=== PATIENT | male | born 1955 | race Caucasian/White ===

== ENCOUNTER → 2017-05-19 | Outpatient (CLI) | payer OTHER ==
--- NOTE | 2017-05-19 15:15 | DIREP ---
PROCEDURE:US AORTA COMPLETE STUDY COMPARISON:None. INDICATIONS:CURRENT SMOKER, SLIGHT ABD BRUIT, SCREENING AAA TECHNIQUE:Grayscale ultrasound was performed of the abdominal aorta. Spectral analysis and color-flow are also performed. FINDINGS: PROXIMAL AORTIC DIAMETER (cm):1.5 x 2.4 cm MID-AORTIC DIAMETER (cm):2.0 x 2.5 cm DISTAL AORTIC DIAMTER (cm):1.6 x 1.7 cm RIGHT COMMON ILIAC DIAMETER (cm):0.9 x 1.0 cm LEFT COMMON ILIAC DIAMETER (cm):1.0 x 1.0 cm CONCLUSION:Normal examination. Dictated by: CRISTINO Physician on 05/19/2017 at 02:51 PM ld
--- NOTE | 2017-05-19 15:18 | DIREP ---
PROCEDURE:CT CHEST WITHOUT CONTRAST TECHNIQUE:Axial cuts were obtained through the chest, without intravenous contrast material. The images were viewed at lung and soft tissue settings. Sagittal and coronal reconstructions are provided. COMPARISON:None. INDICATIONS:OE.REASON FINDINGS: LUNGS:Hyperinflation and mild chronic interstitial changes. Mild biapical pleural thickening, parenchymal scarring and a small bulla. Abnormalities or pleural effusion. CARDIAC:Normal size heart, coronary artery calcifications and normal pulmonary vascularity. THORACIC AORTA:Calcification without dilatation. Calcification of the origin of the great vessels. MEDIASTINUM/ARASELI:No pathologic adenopathy. CHEST WALL:Normal. LIMITED ABDOMEN:Small renal calculi versus peripheral renal arterial calcifications. BONES:Thoracic spondylosis. THYROID:Normal. OTHER:No additional findings. CONCLUSION: 1. Mild emphysema. 2. Diffuse atherosclerosis. 3. No acute intrathoracic abnormality. Dictated by: Lolly Welch MD on 05/19/2017 at 03:12 PM
== END | disposition home or self-care (01) ==
LOC: CT 09:33
PROVIDERS: ATTEND Family Medicine
DX: I71.4 Abdominal aortic aneurysm, without rupture (principal); I70.8 Atherosclerosis of other arteries; J43.9 Emphysema, unspecified; Z72.0 Tobacco use
CPT/HCPCS: 71250; 76770

== ENCOUNTER → 2019-04-19 | Outpatient (CLI) | payer OTHER ==
--- NOTE | 2019-04-19 11:04 | DIREP ---
PROCEDURE:CT CHEST W/O COMPARISON:[facility], CT, CT CHEST W/O, 05/19/2017, 10:24 AM. INDICATIONS:TOBACCO USE, SERVEILLANCE FOR CA TECHNIQUE:Helical sections through the chest were performed from the lung apices through the diaphragms without IV contrast. Sagittal and coronal reconstructions are obtained from source images. FINDINGS: LUNGS:Mild hyper expansion compatible COPD. No definitive nodules. No masses. No change from prior study. PLEURA:Normal. No mass or effusion. CARDIAC:Heart size is normal. Vhtetory-gi-freeos coronary artery calcifications and/or stents are noted. No significant change from prior exam MEDIASTINUM:Normal. No mass or adenopathy. ARASELI:Normal. No mass or adenopathy. AORTA:Atherosclerotic aortic vascular calcifications. No evidence of aneurysm. CHEST WALL:Normal. No mass or axillary adenopathy. LIMITED ABDOMEN:Bilateral renal calcifications in its unclear based on this limited study is a this is vascular in nature or within the collecting system. BONES:Normal. No bony lesion or fracture. OTHER:Negative. CONCLUSION: 1. Coronary artery and aortic atherosclerotic vascular calcifications. 2. COPD. No evidence of discrete lung nodule. No lymphadenopathy. 3. Calcifications seen in the limited view the kidneys in its unclear if these are vascular in nature or within the collecting system. Correlate clinically Dictated by: Joe Perez MD on 04/19/2019 at 10:59 AM
== END | disposition home or self-care (01) ==
LOC: CT 09:33
PROVIDERS: ATTEND Family Medicine
DX: Z12.2 Encounter for screening for malignant neoplasm of respiratory organs (principal); I10 Essential (primary) hypertension; E78.5 Hyperlipidemia, unspecified; J44.9 Chronic obstructive pulmonary disease, unspecified; I25.10 Atherosclerotic heart disease of native coronary artery without angina pectoris; N20.0 Calculus of kidney; Z72.0 Tobacco use; F10.10 Alcohol abuse, uncomplicated
CPT/HCPCS: 71250

== ENCOUNTER 2020-03-09 10:01 | Emergency (ER) | payer OTHER ==
[~2020-03-09] VITALS: Ht 172.7 cm; Wt 68.0 kg
[2020-03-09 10:10] VITALS: BP 166/84
--- NOTE | 2020-03-09 10:43 | ER.PDOC ---
General Chief Complaint: Male Stated Complaint: MALE Time seen by MD: 10:31 Source: patient Exam Limitations: no limitations History of Present Illness Initial Comments Pt began having lower abd pain with dry heaves on evening (4 days ago). Since then has had decreased appetite, only eating crackers and bread with an occasional ice pop. Feels some urinary urgency, though denies tani dysuria. Has had some loose stools, but not persistent diarrhea. Pain worsens with walking around, and sometimes radiates towards upper abdomen. Location: RLQ, suprapubic Associated Symptoms: Urgency Sexual History: Non-contributory Prior symptoms/Treatment: No Similar symptoms previous, No Recenly Seen, No Treated by Doctor, No Recently Hospitalized Allergies: Coded Allergies: No Known Allergies (Unverified , 03/09/20) Past Medical History Medical History: high cholesterol, hypertension Surgical History: no surgical history Family History Significant Family History: no pertinent family hx Social History Alcohol Use: occassionally Drug Use: none Review of Systems Constitutional: no symptoms reported; denies chills, denies fever EENTM: no symptoms reported Respiratory: no symptoms reported Gastrointestinal: see HPI, abdominal pain; denies constipation; nausea; denies vomiting Genitourinary: see HPI Musculoskeletal: no symptoms reported Endocrine: no symptoms reported Hematologic/Lymphatic: no symptoms reported All Other Systems: Reviewed and Negative Physical Exam General Appearance: No Apparent Distress EENT: eyes nml inspection Neck: nml inspection Cardiovascular/Respiratory: Regular Rate, Rhythm, No M/R/G, Normal Peripheral Pulses Abdomen: Normal Bowel Sounds, Soft, Tenderness (RLQ, no guarding or rebound) Rectal: Deferred Back: nml inspection Extremities: Normal Range of Motion, Non-Tender, Normal Inspection, No Pedal Edema Neurologic/Psychiatric: No Motor/Sensory Deficits, Alert, Oriented x 3 Skin: Normal Color, Warm/Dry Lymphatic: No Adenopathy Results/Orders Results/Orders Orders - HEDY YEN DO Cbc With Auto Diff (03/09/20 10:37) Comprehensive Metabolic Panel (03/09/20 10:37) Lipase (03/09/20 10:37) Ct Abd/Pel With Iv Contrast (03/09/20 10:37) Urinalysis (03/09/20 10:37) Vital Signs Date Time Temp Pulse Resp B/P (MAP) Pulse Ox O2 Delivery O2 Flow Rate FiO2 03/09/20 10:10 97.7 77 16 98 03/09/20 10:10 97.7 77 16 03/09/20 10:10 97.7 77 16 166/84 (111) 98 Room Air Laboratory Tests Test 03/09/20 10:10 03/09/20 10:42 Urine Collection Type UNKNOWN Urine Color YELLOW (YELLOW) Urine Appearance CLEAR (CLEAR) Urine Bilirubin NEGATIVE MG/DL (NEGATIVE) Urine Ketones NEGATIVE (NEGATIVE) Urine Specific [place] 1.010 (1.005-1.035) Urine pH 6.5 (5.0-6.0) Urine Protein NEGATIVE (NEGATIVE) Urine Urobilinogen NEGATIVE (NEGATIVE) Urine Nitrate NEGATIVE (NEGATAIVE) Urine Leukocyte Esterase NEGATIVE (NEGATIVE) Urine Blood NEGATIVE (NEGATIVE) Urine Glucose NORMAL (NEGATIVE) White Blood Count 6.1 10^3/uL (4.5-11.0) Red Blood Count 4.45 10^6/uL (4.50-5.90) L Hemoglobin 14.3 g/dL (13.9-16.3) Hematocrit 42.1 % (37.0-53.0) Mean Corpuscular Volume 94.6 fL (78-100) Mean Corpuscular Hemoglobin 32.1 pg (26-34) Mean Corpuscular Hemoglobin Concent 34.0 g/dL (33-36.5) Red Cell Distribution Width 13.0 % (11.5-14.5) Platelet Count 216 10^3/uL (150-400) Mean Platelet Volume 9.7 fL (7.8-11.0) Neutrophils (%) (Auto) 65.3 % (41.0-85.0) Lymphocytes (%) (Auto) 21.4 % (24.0-44.0) L Monocytes (%) (Auto) 10.4 % (5.0-12.0) Neutrophils # (Auto) 4.0 10^3/uL (1.8-7.7) Lymphocytes # (Auto) 1.30 10^3/uL1 (1.0-4.8) Monocytes # (Auto) 0.6 10^3/uL (0.3-0.8) Absolute Immature Granulocyte (auto 0 10^3 u/L (0-2) Absolute Eosinophils (auto) 0.2 10^3/uL (0.0-0.2) Immature Granulocytes % 0.00 % (0.00-0.50) Eosinophils % 2.6 % (0.0-5.0) Basophils % 0.3 % (0.0-0.2) H Basophils # 0.0 10^3/uL (0.0-0.1) Sodium Level 136 mmol/L (132-145) Potassium Level 3.8 mmol/L (3.6-5.2) Chloride Level 102.0 mmol/L (96-109) Carbon Dioxide Level 24.0 mmol/L (20.0-32) Anion Gap 13.8 Blood Urea Nitrogen 8 mg/dL (7-18) Creatinine 0.78 mg/dL (0.59-1.40) Estimated GFR () 120.5 (>/=60) Est GFR (CKD-EPI)(Non-Afr Japanese) 99.6 (>/=60) BUN/Creatinine Ratio 10.0 Glucose Level 121 mg/dL (70-110) H Calcium Level 8.6 mg/dL (8.4-10.5) Total Bilirubin 0.5 mg/dL (0.2-1.0) Aspartate Amino Transferase (AST) 20 U/L (0-35) Alanine Aminotransferase (ALT) 26 U/L (12-78) Alkaline Phosphatase 76 U/L (50-136) Total Protein 7.1 g/dL (6.4-8.2) Albumin 3.4 g/dL (3.4-5.0) Globulin 3.7 Lipase 78 U/L (114-286) L Progress Progress I spoke with pt, reviewed findings, no specific cause of his abd pain, but no surgical findings to indicate need for admission at this time, labs unremarkable. Will d/c home, start on Bentyl and Zofran. Needs f/u with PMD in 1-2 days. PROCEDURE:CT ABD/PELVIS W/ CONTRAST TECHNIQUE:Following the intravenous administration of contrast material, venous phase cuts were obtained through the abdomen and pelvis. The images were viewed at lung and soft tissue settings. Sagittal and coronal reconstructions are provided. COMPARISON:None. INDICATIONS:lower abd pain FINDINGS: LOWER CHEST:The lung bases are clear. Coronary artery calcifications. Small hiatal hernia. LIVER:There is a 2.81 x 2.67 cm heterogeneous mass lesion in the anterior aspect of the left lobe of the liver series 2, image 18. BILIARY:Normal. PANCREAS:Normal. SPLEEN:Normal. URINARY TRACT:Normal. ADRENALS:Normal. AORTA/VASCULAR:Extensive arterial calcifications including renal arterial calcification. RETROPERITONEUM:Normal. BOWEL/MESENTERY:Normal. The appendix is normal. ABDOMINAL WALL:Normal. PELVIS:Normal. BONES:No destructive lesions. Osteophytes in the lumbar spine. OTHER:Normal. CONCLUSION: 1. No explanation for patient's pain. 2. Heterogeneous mass in the left lobe of the liver. Recommend MRI study to exclude possibility of hemangioma. 3. Extensive atherosclerosis. Dictated by: Juan C Joaquin M.D. on 03/09/2020 at 11:50 AM Departure Time of Disposition: 12:42 Disposition: 01 HOME, SELF-CARE Impression: Primary Impression: Abdominal pain Condition: Stable Referrals: MARGARITA VILLEDA DO (PCP) PRIMARY CARE PROVIDER Additional Instructions: f/u PMD in 1-2 days Duration or Time Spent with Pa: 25 Problem Qualifiers Primary Impression: Abdominal pain Abdominal location: lower abdomen, unspecified Qualified Codes: R10.30 - Lower abdominal pain, unspecified HEDY YEN DO Mar 09, 2020 10:43
[2020-03-09 10:55] LABS: BASOPHIL % 0.3 % (0.0-0.2); EOSINOPHIL # 0.2 10^3/uL (0.0-0.2); EOSINOPHIL % 2.6 % (0.0-5.0); LYMPHOCYTES # 1.3 10^3/uL1 (1.0-4.8); LYMPHOCYTES % 21.4 % (24.0-44.0); MEAN CORP HGB 32.1 pg (26-34); MONOCYTES # 0.6 10^3/uL (0.3-0.8); MONOCYTES % 10.4 % (5.0-12.0); NEUTROPHILS % 65.3 % (41.0-85.0)
[2020-03-09 11:04] LABS: APPEARANCE,URINE CLEAR (CLEAR); BILIRUBIN,URINE NEGATIVE (NEGATIVE); UA COLOR YELLOW (YELLOW); UROBILINOGEN,URINE NEGATIVE (NEGATIVE)
[2020-03-09 11:08] LABS: CALCIUM 8.6 mg/dL (8.4-10.5)
--- NOTE | 2020-03-09 11:57 | DIREP ---
PROCEDURE:CT ABD/PELVIS W/ CONTRAST TECHNIQUE:Following the intravenous administration of contrast material, venous phase cuts were obtained through the abdomen and pelvis. The images were viewed at lung and soft tissue settings. Sagittal and coronal reconstructions are provided. COMPARISON:None. INDICATIONS:lower abd pain FINDINGS: LOWER CHEST:The lung bases are clear. Coronary artery calcifications. Small hiatal hernia. LIVER:There is a 2.81 x 2.67 cm heterogeneous mass lesion in the anterior aspect of the left lobe of the liver series 2, image 18. BILIARY:Normal. PANCREAS:Normal. SPLEEN:Normal. URINARY TRACT:Normal. ADRENALS:Normal. AORTA/VASCULAR:Extensive arterial calcifications including renal arterial calcification. RETROPERITONEUM:Normal. BOWEL/MESENTERY:Normal. The appendix is normal. ABDOMINAL WALL:Normal. PELVIS:Normal. BONES:No destructive lesions. Osteophytes in the lumbar spine. OTHER:Normal. CONCLUSION: 1. No explanation for patient's pain. 2. Heterogeneous mass in the left lobe of the liver. Recommend MRI study to exclude possibility of hemangioma. 3. Extensive atherosclerosis. Dictated by: Juan C Joaquin M.D. on 03/09/2020 at 11:50 AM
--- NOTE | 2020-03-09 13:05 | NUR ---
IV to R FA removed/ Pressure held. Dressed with cottonball and tape. Pt tolerated well.
[2020-03-09 13:11] VITALS: BP 112/39
== END 2020-03-09 13:12 | disposition home or self-care (01) ==
LOC: ER 10:01
DX: R10.31 Right lower quadrant pain (principal); I10 Essential (primary) hypertension; E78.00 Pure hypercholesterolemia, unspecified
CPT/HCPCS: 36415; 74177; 80053; 81002; 83690; 85025; 99285; Q9965

== ENCOUNTER → 2022-12-19 | Outpatient (CLI) | payer OTHER ==
--- NOTE | 2022-12-20 08:55 | DIREP ---
PROCEDURE:US DOPPLER CAROTID BILATERAL COMPARISON:None. INDICATIONS:OCCLUSION AND STENOSIS OF CAROTID ARTERIES TECHNIQUE:Sonographic evaluation of carotid arteries was performed together with grayscale, color-flow, and spectral analysis. FINDINGS: PEAK FLOW VELOCITIES (cm/sec) RIGHT CCA: PROX:70.9 cm/s MID:75.5 cm/s DIST:56.2 cm/s RIGHT ICA: PROX:117.2 cm/s MID:141.5 cm/s DIST:135.1 cm/s RIGHT ECA:110.8 cm/s RIGHT ICA/CCA:2.52 RIGHT VERTEBRAL:36.6 cm/s; Antegrade IMAGES:There is moderate plaque. LEFT CCA: PROX:120.5 cm/s MID:135.1 cm/s DIST:166.4 cm/s LEFT ICA: PROX:127.0 cm/s MID:127.0 cm/s DIST:75.5 cm/s LEFT ECA:141.7 cm/s LEFT ICA/CCA:0.76 LEFT VERTEBRAL:74.6 cm/s; Antegrade IMAGES:There is moderate plaque. OTHER: An enlarged 1.3 x 0.4 x 0.9 cm lymph node with fatty hilum is identified within the left side of the neck. CONCLUSION: 50-69% stenosis of the bilateral extracranial internal carotid arteries. Enlarged left cervical lymph node incidentally noted, mildly enlarged. Visible plaque with suspected stenosis at the left mid common carotid artery incidentally noted. Diameter Stenosis (%)ICA Peak Systolic Velocity (cm/s)ICA/CCA RatioNormal<125<2.0<50<125<[id number]>2-470 to near occlusion>230>4J Ultrasound Med 2005; 24:[id number] Dictated by: CRISTINO Physician on 12/19/2022 at 03:21 PM karen
== END | disposition home or self-care (01) ==
LOC: RAD 13:36
PROVIDERS: ATTEND Nurse Practitioner Family
DX: I65.23 Occlusion and stenosis of bilateral carotid arteries (principal)
CPT/HCPCS: 93880